=== PATIENT | male | born 2000 | race Caucasian/White ===

== ENCOUNTER 2022-02-16 07:18 | Day surgery (SDC) | payer OTHER ==
[~2022-02-16 07:18] MED LIST: DEXAMETHASONE SOD PHOSPHATE 4 MG/ML 1 ML VIAL IV PRN; FAMOTIDINE 20 MG/2 ML VIAL IV PRN; HYDROmorphone 0.5 MG/0.5 ML SYRINGE IVP PRN; LACTATED RINGERS 1,000 ML IV SCH; ONDANSETRON 4 MG/2 ML VIAL IVP PRN
[2022-02-16] MEDS: OXYMETAZOLINE 0.05% NASL SPRAY 1 SPRAY BOTTLE EA NOSTRIL PRN ×5 (07:45→08:05)
[2022-02-16] MEDS ORDERED: MIDAZOLAM 2 MG/2 ML VIAL IV ONE (08:05)
[2022-02-16] MEDS ORDERED: MIDAZOLAM 2 MG/2 ML VIAL ONE (08:20)
[2022-02-16] MEDS ORDERED: SUCCINYLCHOLINE CHLORIDE 100 MG/5 ML SYR IV ONE (08:20)
[2022-02-16] MEDS ORDERED: fentaNYL (PF) 50 MCG/ML 2 ML AMP ONE (08:20)
[2022-02-16] MEDS ORDERED: DEXAMETHASONE SOD PHOS (MDV) 100 MG/10 ML VIAL ONE (08:20)
[2022-02-16] MEDS ORDERED: LIDOCAINE 2% INJ 20 MG/ML (2 ML VIAL) ONE (08:20)
[2022-02-16] MEDS ORDERED: LIDOCAINE 4% LTA KIT (4 ML) TOPICAL ONE (08:20)
[2022-02-16] MEDS ORDERED: PROPOFOL 10 MG/ML 20 ML VIAL IV ONE (08:20)
[2022-02-16] MEDS ORDERED: LIDOCAINE 1%-EPI 1:100,000 20 ML VIAL SUBMUCOSAL ONE ×2 (08:42)
[2022-02-16] MEDS ORDERED: BACITRACIN ZINC 500 UNIT/GM OINT 28.4 GM TUBE TOPICAL ONE (08:42)
--- NOTE | 2022-02-16 09:09 | P.OP ---
Date of Procedure: 02/16/22 Preoperative Diagnosis: Deviated nasal septum Inferior turbinate hypertrophy Postoperative Diagnosis: Same Procedure(s) Performed: Septoplasty Outfracture and submucous resection of the inferior turbinates Anesthesia: MALGORZATAA Surgeon: Selwyn Holcomb Estimated Blood Loss (ml): 3 Pathology: other (Nasal septal bone and cartilage) Condition: stable Disposition: PACU Indications for Procedure: Is a 21-year-old white male with difficulties with chronic nasal airway obstruction with little improvement with steroid nasal spray Operative Findings: septum deviated to the right in both the bony and cartilaginous septum obstructing approximately 80% of the nasal airway with inferior turbinate hypertrophy bilateral Description of Procedure: DESCRIPTION OF PROCEDURE: The patient was brought to the operative suite, placed in the supine position. The patient underwent induction of general anesthesia with oral endotracheal intubation without difficulty. The patient was prepped and draped in the usual aseptic fashion. 1% lidocaine with 1:100,000 epinephrine was infused submucosally on both sides of the nasal septum. While this was taking vasoconstrictive effect, the inferior turbinates were infractured with a [place] elevator. Partial submucous resection of the inferior turbinates was performed with Coblation device ablating a portion of the submucosal soft tissue and therefore removing a portion of the submucosal soft tissue. The inferior turbinates were then outfractured with a [place] elevator. A left hemitransfixion incision was then made through the mucoperichondrial. Mucoperiosteal flap on the left elevated. Bony cartilaginous junction was disarticulated and mucoperiosteal flap on the right was elevated. Bony nasoseptal deformity were removed with Lino forceps and an inferior cartilaginous strip was removed, leaving a full 1.5 cm caudal strut. Checking intranasally, this corrected the nasal septal deformities and the hemitransfixion incision was closed with running 4-0 chromic suture. The bilateral [place] airway splints coated in bacitracin ointment were placed in the nasal cavities and sutured transseptally with 4-0 nylon suture. The patient was then suctioned in an orogastric fashion. The patient was allowed to emerge from general anesthesia, having tolerated the procedure well and was extubated in the operating suite, transferred to postoperative recovery area in satisfactory condition.
[2022-02-16 09:34] VITALS: TEMP 97.5
[2022-02-16 10:23] VITALS: BP 152/84; PULSE 87; RESP 17
== END 2022-02-16 11:00 | disposition home or self-care (01) ==
LOC: OR 07:18
PROVIDERS: ATTEND Otolaryngology
DX: J34.2 Deviated nasal septum (principal); J34.3 Hypertrophy of nasal turbinates
CPT/HCPCS: 88300; 30520; 30140; J2250; J1100 ×2; J0690; J2405; J3010; J0330; J2704; J2001